=== PATIENT | female | born 1945 ===

== ENCOUNTER 2019-11-15 10:14 | Observation (INO) | payer MEDICARE, BC, OTHER ==
[2019-11-15] MEDS ORDERED: Nitroglycerin 2% Ointment 1 INCH/1 GM Packet ONE (11:27)
--- NOTE | 2019-11-15 11:38 | RAD ---
Exam: Chest one view: HISTORY: Dyspnea FINDINGS: Cardiomegaly. Left ICD. Mild bilateral vascular congestion. No confluent pneumonia, overt edema, or s ignificant pleural effusions. Slightly prominent proximal pulmonary artery segments bilaterally. No prior studies IMPRESSION: Minimal cardiomegaly and vascular congestion without other acute process.
[2019-11-15 12:00] LABS: #Eosinphils 0.1 thou/uL (0.0-0.7); #Lymphocytes 1.4 thou/uL (1.20-3.40); #Monocytes 0.7 thou/uL (0.11-0.59); #Neutrophils 6.8 thou/uL (1.40-6.50); %Basophils 0.3 % (0.0-1.0); %Eosinophils 1.4 % (0.0-10.0); %Lymphocytes 15.5 % (21.0-51.0); %Monocytes 7.9 % (0.0-10.0); Hemoglobin 13.1 g/dL (12.0-16.0); Mean Corpuscular HGB CONC 30.5 g/dL (32.0-36.0); Mean Corpuscular Volume 81.9 fL (78.0-98.0); Mean Platelet Volume 5.7 fL (7.4-10.4); Platelet Count 204 thou/uL (130-400); RBC Distribution Width 16.3 % (11.5-14.5); Red Blood Cell (RBC) Count 5.24 mill/uL (4.20-5.40); White Blood Cell (WBC) Count 9.1 thou/uL (4.8-10.8)
[2019-11-15] MEDS ORDERED: Ondansetron ODT 4 MG TAB SL PRN (12:00)
[2019-11-15] MEDS ORDERED: Ondansetron PF 4 MG/2 ML Vial IVP PRN (12:00)
[2019-11-15 12:20] LABS: Hypochromia SLIGHT = 6-15 cells (100X) (0-5/hpf); MDiff Complete? YES; Platelet Morphology Comment Appears Adequate; Polychromasia SLIGHT = 2-3 cells (100X) (0-2/hpf); Target Cells SLIGHT = 2-5 cells (100X) (0-1/hpf)
[2019-11-15 12:21] LABS: ALT (SGPT) 10 U/L (8-55); AST (SGOT) 13 U/L (5-34); Albumin 4.1 g/dL (3.4-4.8); Alkaline Phosphatase 98 U/L (40-110); Anion Gap 17 mmol/L (10-20); BUN (Urea Nitrogen) 37 mg/dL (9.8-20.1); Bilirubin, Total 0.9 mg/dL (0.2-1.2); CK (CPK) 100 U/L (29-168); Calc. Creatinine Clearance 0 mL/min (70-130); Calcium 9.9 mg/dL (7.8-10.44); Carbon Dioxide 21 mmol/L (23-31); Chloride 108 mmol/L (98-107); Estimated GFR-MDRD 8; Globulin 3.9 g/dL (2.4-3.5); Glucose 104 mg/dL (83-110); Lipase 14 U/L (8-78); Sodium 141 mmol/L (136-145)
[2019-11-15 12:46] LABS: CKMB 2.7 ng/mL (0-6.6)
[2019-11-15] MEDS ORDERED: Aspirin Chewable 81 MG TAB ONE (13:03)
[2019-11-15 14:45] LABS: Critical Call Chem Troponin I RESULT DECREASING; Troponin I 0.402 ng/mL (< 0.028)
[2019-11-15 14:54] LABS: HBSAg Index 0.21 S/CO (0-0.99); Hep B Surf Ag Non-Reactive S/CO (NonReactive)
[2019-11-15 15:50] VITALS: BMI 31.4
--- NOTE | 2019-11-15 20:03 | CON ---
DATE OF CONSULTATION: 11/15/2019 REQUESTING PHYSICIAN: Dr. Royal. REASON FOR CONSULTATION: End-stage renal disease management. CHIEF COMPLAINT: Shortness of breath. HISTORY OF PRESENT ILLNESS: A 74-year-old female with known history of end-stage renal disease, on hemodialysis, Tuesday, and Tuesday, who usually resides in [facility], on a visit here, presents to the emergency room due to worsening shortness of breath and difficulty breathing. The patient had visited the area with the , but her got sick and was admitted at the hospital. The patient was unable to get outpatient hemodialysis in the area due to coronavirus. Last hemodialysis was on October. There is no history of chest pain or fever. In the emergency room, the patient was noted to be tachycardic with increased work of breathing. Further evaluation with CMP showed potassium of 5.0. BNP was elevated at 1800 and troponin was mildly elevated at 0.4. Nephrology consult was requested for evaluation for emergent hemodialysis. PAST MEDICAL HISTORY: 1. Hypertension. 2. Type 2 diabetes mellitus. 3. Restless legs syndrome. 4. Peripheral vascular disease, status post right foot amputation. 5. Hyperlipidemia. 6. Arrhythmias. 7. Obesity. 8. Congestive heart failure. PAST SURGICAL HISTORY: 1. Left arm fistula creation. 2. Right forefoot amputation. 3. Cholecystectomy. 4. Bilateral cataractectomy. 5. Pacemaker placement. FAMILY HISTORY: Significant history of diabetes and hypertension in both parents. SOCIAL HISTORY: The patient lives with spouse in [facility]. Denied smoking. ALLERGIES: VANCOMYCIN. CURRENT HOME MEDICATIONS: Unable to obtain at this moment. The patient does not know exactly what medications she takes. REVIEW OF SYSTEMS: A 12-point review of system performed was negative other than pertinent positives and negatives included in the history of present illness. PHYSICAL EXAMINATION: VITAL SIGNS: Blood pressure 143/116, pulse 107, respiratory rate 22, temperature 98.7, SpO2 of 97 on room air. Of note, on presentation to the ER, initial vitals were as follows, BP 203/82, pulse 94, respiratory rate 18, temperature 99.0, SpO2 of 97 on room air. GENERAL: Obese, elderly female, in mild respiratory distress. Afebrile, anicteric, acyanotic. The patient is fatigued. HEENT: Normocephalic and atraumatic. Oral mucosa is moist. NECK: Supple with no obvious JVD. CARDIOVASCULAR: Regular rhythm and rate, but tachycardic. RESPIRATORY: Decreased air entry in both bases with some transmitted breath sounds. No obvious rhonchi were noted. Work of breathing is mildly increased with conversational dyspnea. GI: Obese, soft, nontender, nondistended with normal bowel sounds. EXTREMITIES: Right forefoot amputation noted. Bilateral distal leg chronic venostasis changes noted as well. Moderate bilateral leg edema noted. VALIDATION SPECIALIST: Conscious, alert, and oriented x3 with appropriate mental status. Cranial nerves 2 through 12 are grossly intact. DIAGNOSTIC DATA: CBC showed WBC count of 9.1, hemoglobin of 13.1, MCV of 81.9, and platelets of 204. CMP showed sodium of 141, potassium 5.0, chloride 108, CO2 of 21, BUN 37, creatinine 5.29, glucose 104, calcium 9.9, total bilirubin 0.9, AST 13, ALT 10, alkaline phosphatase 98, total protein 8.0, albumin 4.1, globulin 3.9. CK is 100, CK-MB 2.7, troponin 0.41. Lipase is 14. Chest x-ray showed cardiomegaly with vascular congestion. ASSESSMENT: 1. Acute respiratory insufficiency: Due to volume overload. 2. Volume overload: Due to missed hemodialysis. 3. End-stage renal disease, on hemodialysis on Tuesday, , and Tuesday with last hemodialysis being a week ago. 4. Hypertension, control is fair. Initially elevated, but is improving. 5. Elevated troponin: Most likely due to demand ischemia related to acute congestive heart failure. 6. Diabetes mellitus. PLAN: 1. We will plan on dialyzing the patient with 2K bath for at least 3 hours today. UF as tolerated will be provided. 2. Other treatment as per primary attending. 3. Further treatment to follow depending on hospital course. Many thanks for involving us in the care of this patient. We will re-evaluate and follow along with you. Job ID: [id number]
[2019-11-15] MEDS: Carvedilol 6.25 MG TAB PO SCH (20:59)
[2019-11-15] MEDS ORDERED: rOPINIRole HCl 0.5 MG TAB PO SCH (22:45)
[2019-11-16] MEDS ORDERED: traMADol HCl 50 MG TAB PO SCH (00:30)
[2019-11-16 04:34] LABS: Albumin 3.6 g/dL (3.4-4.8); Anion Gap 16 mmol/L (10-20); BUN (Urea Nitrogen) 27 mg/dL (9.8-20.1); BUN/Creatinine Ratio 6.12; Calc. Creatinine Clearance 14 mL/min (70-130); Calcium 9.1 mg/dL (7.8-10.44); Carbon Dioxide 27 mmol/L (23-31); Chloride 103 mmol/L (98-107); Estimated GFR-MDRD 10; Glucose 110 mg/dL (83-110); Potassium 4.5 mmol/L (3.5-5.1); Sodium 141 mmol/L (136-145)
--- NOTE | 2019-11-16 07:31 | HP ---
CHIEF COMPLAINT: Shortness of breath. HISTORY OF PRESENT ILLNESS: The patient is a 74-year-old female with history of end-stage renal disease on hemodialysis, who was out of town and visiting a family member. Her last session was a week ago. She presented to the hospital with complaints of severe shortness of breath that has been worsening over the past 2 days. She also complains of orthopnea and palpitations. She endorses some chest discomfort. Denies cough or dizziness. REVIEW OF SYSTEMS: Negative except as in HPI. PAST MEDICAL HISTORY: End-stage renal disease, restless legs syndrome, chronic back pain, and chronic nausea. PAST SURGICAL HISTORY: Positive for right transmetatarsal amputation. SOCIAL HISTORY: No smoking, drinking, or illicit drug use. PHYSICAL EXAMINATION: GENERAL: No acutedistress. HEENT: Normocephalic, atraumatic. NECK: Supple. CARDIOVASCULAR: Showing tachycardia with regular rhythm. CHEST: Bilateral crackles, nontender, nondistended. NEUROLOGIC: Unremarkable. IMPRESSION: 1. Acute respiratory failure with hypoxia. 2. Volume overload due to missed hemodialysis. 3. Hypotension. 4. Diabetes mellitus. 5. Peripheral neuropathy. PLAN: The patient will be admitted to the hospital for emergent hemodialysis. We will consult Nephrology. Rest of the management depends on the hospital course. Job ID: [id number] MTDD
[2019-11-16 08:15] VITALS: TEMP 98.7
[2019-11-16] MEDS: Carvedilol 6.25 MG TAB PO SCH (08:31)
[2019-11-16] MEDS ORDERED: Lisinopril 20 MG TAB PO SCH (09:00)
[2019-11-16 11:55] VITALS: BP 145/63
[2019-11-16] MEDS ORDERED: rOPINIRole HCl 0.5 MG TAB PO SCH (21:00)
--- NOTE | 2019-11-16 21:02 | PRG ---
DATE OF SERVICE: 11/16/2019 SERVICE: Nephrology. SUBJECTIVE: A 74-year-old female with end-stage renal disease, on hemodialysis, admitted due to worsening shortness of breath. The patient was emergently dialyzed last night. Reports feeling better. Denied nausea, vomiting, chest pain, or shortness of breath. Desires to be discharged. OBJECTIVE: VITAL SIGNS: Temperature of 98.7, pulse 80, respiratory rate 16, blood pressure 178/69, and SpO2 of 92 on room air. GENERAL: Elderly female, in no obvious distress. Afebrile. Anicteric. Acyanotic. HEENT: Normocephalic and atraumatic. Oral mucosa is moist. CARDIOVASCULAR: Regular rhythm and rate with normal heart sounds 1 and 2. RESPIRATORY: Fair air entry bilaterally with no obvious crackle or rhonchi or use of accessory muscles. GI: Obese, soft, nontender, and nondistended with normal bowel sounds. EXTREMITIES: Right forefoot amputation and chronic bilateral venous stasis changes noted. No obvious edema appreciated. COMPUTER FORENSICS ANALYST: Conscious, alert, and oriented x3 with appropriate mental status. DIAGNOSTIC DATA: Renal function panel today showed sodium 141, potassium 4.5, chloride 103, CO2 of 27, BUN 27, creatinine 4.41, glucose 110, calcium 9.1, phosphorus 4.0, and albumin 3.6. ASSESSMENT: 1. Volume overload with respiratory insufficiency. This is due to missed hemodialysis. 2. End-stage renal disease, on hemodialysis. The patient was dialyzed yesterday after one week of missed hemodialysis. 3. Volume overload: Resolved with hemodialysis. 4. Hypertensive urgency: The patient does not know all her medications. Seems not to be very compliant with medications. 5. Hyperkalemia: Resolved with hemodialysis. PLAN: 1. We will start lisinopril 20 mg p.o. daily. 2. Coreg 12.5 mg will be continued as well. 3. Given that the patient is hemodynamically stable with acceptable electrolytes, there is no need for hemodialysis today. The [place] and is due to have dialysis tomorrow in line with her outpatient schedule. It is okay to discharge the patient from Nephrology point of view. The patient need to follow up with regular binder roller in [facility]. Other treatment as per primary attending. Job ID: [id number]
--- NOTE | 2019-11-17 14:58 | EKG ---
Test Reason : Blood Pressure : / mmHG Vent. Rate : 095 BPM Atrial Rate : 095 BPM P-R Int : 166 ms QRS Dur : 130 ms QT Int : 398 ms P-R-T Axes : 066 -11 126 degrees QTc Int : 500 ms Atrial-sensed ventricular-paced rhythm Abnormal ECG Confirmed by FLAQUITO STOKES, OMAR ([id number]), editor sound MORGAN GOULD ([id number]) on 11/17/2019 2:58:12 PM Referred By: Confirmed By:OMAR HUDDLESTON MD
== END 2019-11-16 12:57 | disposition home or self-care (01) ==
LOC: ERS 10:14 → 2NO 13:06
PROVIDERS: ADMIT Internal Medicine; ATTEND Internal Medicine
DX: E87.70 Fluid overload, unspecified (principal); I16.0 Hypertensive urgency; I13.2 Hypertensive heart and chronic kidney disease with heart failure and with stage 5 chronic kidney disease, or end stage renal disease; E11.22 Type 2 diabetes mellitus with diabetic chronic kidney disease; N18.6 End stage renal disease; I50.9 Heart failure, unspecified; E87.5 Hyperkalemia; E66.9 Obesity, unspecified; Z68.29 Body mass index [BMI] 29.0-29.9, adult; Z88.1 Allergy status to other antibiotic agents; Z95.0 Presence of cardiac pacemaker; Z99.2 Dependence on renal dialysis
CPT/HCPCS: 36415; 36416; 71045; 80053; 80069; 82550; 82553; 83690; 83880; 84484; 85025; 87340; 90935; 93005; 94760; G0257; G0378